=== PATIENT | female | born 1995 | race Caucasian/White ===

== ENCOUNTER 2025-03-13 17:08 | Emergency (ER) | payer BC, SELFPAY ==
--- NOTE | ~2025-03-13 | XR_ITS ---
EXAMINATION: XR ankle RT min 3V, 03/13/2025 17:20 RACE RELATIONS ADVISER HISTORY: fell in a hole yesterday COMPARISON: No comparisons available. Findings: No acute fracture or malalignment. No significant degenerative changes. Soft tissues unremarkable. Impression: No acute fracture or malalignment. Reviewed, dictated and finalized at location P. RELATIONS ADVISER Impression: No acute fracture or malalignment.
[2025-03-13 17:21] VITALS: BP 152/96; PULSE 88; RESP 16; TEMP 36.8; O2SAT 100
--- NOTE | 2025-03-13 17:38 | ED_ITS ---
HPI - Extremity Injury (Lower) General Chief Complaint: Extremity Injury, Lower Stated Complaint: Injured R Ankle Time Seen by Provider: 03/13/25 17:34 Source: patient, RN notes reviewed and old records reviewed Mode of arrival: ambulatory Limitations: no limitations History of Present Illness HPI Narrative: 29-year-old female who presents to [facility] with complaints of stepping in hole yesterday at work and felt her right ankle pop. Patient reports that she still has some discomfort with ambulation and movement and wants to make sure she didn't have fracture in ankle. She reports that she took her mom's arthritis medication for her discomfort.Patient reports no tingling or numbness to right foot or toes, no obvious deformity. MD complaint: ankle injury Onset (ago): day(s) (yesterday) Injury: Right: ankle Type of Injury: other Place: street/outdoors Severity scale (1-10): 4 Exacerbating factors: weight bearing and movement Treatments prior to arrival: other (took mom's arthritis medication) Related Data Home Medications ?Medication ?Instructions ?Recorded ?Confirmed ?Last Taken ?Type control 03/13/25 Unknown History Allergies Allergy/AdvReac Type Severity Reaction Status Date / Time Penicillins Allergy Unknown Unknown Verified 03/13/25 17:31 Review of Systems Review of Systems: CONSTITUTIONAL: Denies fever, chills, or sweats. EYES: Denies visual changes, redness, or discharge. ENT: Denies rhinorrhea, congestion, sore throat, or otalgia. CARDIOVASCULAR: Denies chest pain, palpitations, or edema. RESPIRATORY: Denies cough or dyspnea. GASTROINTESTINAL: Denies abdominal pain, nausea, vomiting, or diarrhea. GENITOURINARY: Denies dysuria or hematuria. SKIN: Denies rash or itching. MUSCULOSKELETAL: Denies back pain positive for right ankle joint pain , or myalgia. NEUROLOGIC: Denies headache, numbness, or weakness. PSYCHIATRIC: Denies anxiety or depression. All systems reviewed & are unremarkable except as noted in HPI and below PMFSH Surgical History Surgical History (Updated 03/16/25 @ 08:29 by Giovanna Delong APRN) History of oophorectomy Social History Social History (Updated 03/16/25 @ 08:28 by Giovanna Delong APRN) Smoking status: Never smoker Alcohol intake: current Alcohol use details: rare social Substance use: never Living arrangements: with family Gender identity (if verbalized by the patient): Female Comments At time of signature, agree with nursing past medical, surgical, social and family history. There is no relevant family history pertinent to the presenting complaint Exam Narrative: GENERAL: Well-appearing, well-nourished, and in no acute distress. HEAD: Normocephalic, atraumatic. EYES: PERRLA and EOMI. ENT: Nares clear, no rhinorrhea or epistaxis. Mucous membranes moist.TM's normal with good light reflex, throat pink with no swelling or exudates NECK: Supple.no lymphadenopathy CHEST: Clear to auscultation. No respiratory distress.SAO2 100% on room air HEART: Regular rate and rhythm. No murmur heard. Normal peripheral pulses. ABDOMEN: Soft, nontender, nondistended, normal active bowel sounds. EXTREMITIES: Normal range of motion. No edema.Patient has pain to right ankle joint with movement and weight bearing, no acute swelling or bruising noted, Patient has strong pedal pulse to her right foot, denies any tingling or numbne ss to her foot or toes, ROM present of ankle with discomfort, is able to flex and extend foot without difficulty. SKIN: Warm, dry, no rash. NEURO: No focal deficits. Alert and oriented x3. Course Course Emergency Course: Patient is aware of diagnosis, understands and agrees to treatment plan.? Anticipatory guidance given.? Patient agrees to follow-up as directed and is aware of reasons to seek care at the emergency department. Portions of this record may have been created with voice recognition software Level of Care: Express Care Visit Vital Signs Vital signs: Vital Signs Temperature 36.8 C 03/13/25 17:21 Pulse Rate 88 03/13/25 17:21 Respiratory Rate 16 03/13/25 17:21 Blood Pressure 152/96 H 03/13/25 17:21 Pulse Oximetry 100 03/13/25 17:21 Temperature 36.8 C 03/13/25 17:21 Pulse Rate 88 03/13/25 17:21 Respiratory Rate 16 03/13/25 17:21 Blood Pressure 152/96 H 03/13/25 17:21 Pulse Oximetry 100 03/13/25 17:21 Reviewed MDM - Extremity Injury (Lower) Differential Diagnosis Differential diagnosis: Likely ankle sprain and strain, ankle fracture and other (pain right ankle ) Medical Records Attestation: I reviewed the patient's medical records. Imaging Data Attestation: I personally reviewed and interpreted this imaging study as follows: My impression: no fracture of right ankle or malalignment Radiologist's impression: Express [facility] [place] [address] XRay Report Signed Patient: Paras Valentine : 1995 MR#: [id number] Age: 29 Acct:[id number] Loc: [facility] ADM Date: 03/13/[address]: Ordering Physician: Giovanna Delong APRN Date of Service: 03/13/25 Procedure(s): XR ankle RT min 3V Accession Number(s): [id number] cc: HAND I BLOCKER PHYSICIAN; Giovanna Delong BLOWER INSTALLER~ EXAMINATION: XR ankle RT min 3V, 03/13/2025 17:20 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 Findings: No acute fracture or malalignment. No significant degenerative changes. Soft tissues unremarkable. Impression: No acute fracture or malalignment. Reviewed, dictated and finalized at location P. CE MACHINE REPAIR SHOP SUPERVISOR Please be advised this is a medical document. It is intended for [id number] communication. It is written in medical language and may contain unfamiliar abbreviations or verbiage. Medical documents are intended to carry relevant information, facts as evident, and the clinical opinion of the practitioner at the time of the encounter. This report may have been done utilizing a voice recognition system. Attempts have been made to correct errors. However, there may be uncorrected grammatical, spelling, and recognition errors present. The file time of this note does not necessarily represent the time of service. Dictated By: Balwinder Casey MD 03/13/25 8450 Signed By: <Electronically signed by Balwinder Casey MD in OV> Critical Care Time Critical Care Time Critical Care Time: No Discharge Plan Discharge Clinical Impression: Ankle sprain and strain Patient Disposition: Home Condition: Stable Instructions: Antibiotic Form, Arthralgia (ED) Additional Instructions: Elastic wrap or orthopedic splint as directed for comfort for the next 5-7 days Tylenol for lesser pain Ibuprofen regularly for the next 2-3 days for the inflammation Follow-up with orthopedic surgeon if continued problems Follow-up with PCP if further problems or concerns Ice to the area 20-30 minutes 4-6 times a day Elevate above heart If your symptoms persist, change or worsen significantly before you can contact your personal physician then please, without delay, go to the emergency department for further evaluation. Follow-up with PCP in 7-10 days or sooner if needed Follow up with PCP soon in regards to your blood pressure which is elevated above threshold for referral. Blood pressure above 120/80 may indicate pre- hypertension.152/96 Patient Language: Malaysian Prescriptions: No Action control Follow-up/Referrals: PHYSICIAN,HAND I BLOCKER [Primary Care Provider, Internal Medicine] Time of Disposition: 17:50 Quality [place] Coma Scale Eyes: Open Verbal: Oriented and Alert Motor: Follows Commands Roseanne Coma Total Score: 15
== END 2025-03-13 18:00 | disposition home or self-care (01) ==
PROVIDERS: Emergency Provider Registered Nurse
DX: S93.401A Sprain of unspecified ligament of right ankle, initial encounter (principal); S96.911A Strain of unspecified muscle and tendon at ankle and foot level, right foot, initial encounter; W17.2XXA Fall into hole, initial encounter
CPT/HCPCS: 73610; 99203; G0463